=== PATIENT | female | born 1995 | race Caucasian/White ===

== ENCOUNTER 2023-04-04 13:56 | Emergency (ER) | payer OTHER, SELFPAY ==
--- NOTE | ~2023-04-04 | CT_ITS ---
EXAMINATION: CT abdomen pelvis w con DATE: 04/04/2023 18:45 INDICATION: generalized abd tenderness, n/v/d TECHNIQUE: Computed tomography (CT) of the abdomen and pelvis was performed with 100 mL Omnipaque-350 intravenous contrast. Automated exposure control and iterative reconstruction technique were employe d. The dose-length product was 555.63 mGy-cm. COMPARISON: 10/06/2017. FINDINGS: Lower thorax: Unremarkable Liver: Normal. Biliary/Gallbladder: Gallbladder is normal. No bile duct dilation. Pancreas: No mass or duct dilation. Spleen: Normal. Adrenals:No mass. Kidneys: Left subcentimeter renal hypodensities, too small to characterize but most likely represent cysts. No no suspicious mass, stone, or hydronephrosis. GI tract: Mild distal esophageal and gastric wall edema. No small or large bowel dilation. Normal marisol endix. Mesentery/Peritoneum: No ascites, mass, or free air. Retroperitoneum: No mass. Pelvis: Pelvic organs are within normal limits. Small volume free pelvic fluid, within visualized ran ge. Soft Tissues: Soft tissues and body wall unremarkable. Bones: No acute osseous finding. IMPRESSION: Mild esophagitis/gastritis. Otherwise, no acute abdominopelvic process detected. Reviewed, dictated and finalized at location K. IMPRESSION: Mild esophagitis/gastritis. Otherwise, no acute abdominopelvic process detected .
[2023-04-04 14:03] VITALS: BP 128/96; PULSE 94; RESP 18; TEMP 36.3; O2SAT 97
[2023-04-04 16:05] LABS: Hematocrit 48.3 % (37.0-47.0); Hemoglobin 16.6 g/dL (12.0-15.0); Mean Corpuscular HGB Conc 34.4 g/dl (32-36); Mean Corpuscular Hemoglobin 29.1 pg (26-34); Mean Corpuscular Volume 84.7 fl (80-100); Mean Platelet Volume 8.2 fl (7.4-10.4); Platelet Count Result 211 k/mm3 (150-375); Red Cell Distribution Width 11.9 % (11.5-14.5); White Blood Count 15.6 K/mm3 (4.5-10.0)
[2023-04-04 16:16] LABS: Alanine Aminotransferase 37 U/L (6-35); Albumin Level 4.5 g/dL (3.5-5.1); Alkaline Phosphatase 73 U/L (38-126); Anion Gap 6 mmol/L (8-16); Aspartate Amino Transferase 34 U/L (14-36); Bilirubin,Total 0.7 mg/dL (0.2-1.3); Blood Urea Nitrogen 11 mg/dL (7-17); Carbon Dioxide 26 mmol/L (22-30); Chloride 106 mmol/L (98-107); Estimated CRCL calculation 121 ml/min; Estimated Glomerular Filt Rate > 60; Glucose 99 mg/dL (65-110); Lipase 98 U/L (23-300); Potassium 4.5 mmol/L (3.4-5.0); Sodium 138 mmol/L (137-145)
[2023-04-04 16:43] LABS: Band Neutrophils Percent 8 % (0-6); Lymphocytes Absolute Manual 0.31 K/mm3 (1.1-4.5); Monocytes Absolute Manual 0.46 K/mm3 (0.1-0.90); Monocytes Percent Manual 3 % (3-9); Neutrophils Absolute Manual 14.82 K/mm3 (1.7-7.2); Neutrophils Percent Manual 87 % (46-73); Platelet Estimate Adequate (Adequate); Schistocytes None Seen (NORMAL); Total Cells Counted 100
--- NOTE | 2023-04-04 18:01 | ED.NAVMDI ---
HPI - Nausea/Vomiting/Diarrhea General Chief complaint: Nausea/Vomiting/Diarrhea Stated complaint: n/v/d stomach cramps Time Seen by Provider: 04/04/23 17:31 History of Present Illness HPI Narrative: 27-year-old female female reports for evaluation of nausea, vomiting, diarrhea and abdominal cramping x1 day. Patient reports for the past 3 to 4 days, she has had intermittent dysuria. Denies vaginal bleeding, discharge, vaginal lesions or concerns for STDs. She states the dysuria goes away after she drinks a lot of water but then will return. Today woke up with generalized abdominal cramping and associated nausea. She reports 2 episodes of nonbloody emesis and 5 episodes of nonbloody, nonmelanotic soft stools. She denies back pain, chest pain or shortness of breath, fever, body aches or chills. LMP unknown. Related Data Allergies Allergy/AdvReac Type Severity Reaction Status Date / Time Sulfa (Sulfonamide Allergy Severe FACIAL Verified 04/04/23 13:57 Antibiotics) SWELLING, HIVES sulfadiazine Allergy Unknown facial Verified 04/04/23 13:57 swelling Review of Systems Review of Systems: CONSTITUTIONAL: Denies fever, chills EYES: Denies visual changes, redness, or discharge. ENT: Denies rhinorrhea, congestion, sore throat, or otalgia. CARDIOVASCULAR: Denies chest pain, palpitations, or edema. RESPIRATORY: Denies cough or dyspnea. GASTROINTESTINAL: See HPI GENITOURINARY: See HPI SKIN: Denies rash or itching. MUSCULOSKELETAL: Denies back pain, joint pain, or myalgia. NEUROLOGIC: Denies headache, numbness, dizziness, or weakness. PSYCHIATRIC: Denies anxiety or depression. [facility] Past Medical History Medical History Current smoker Fentanyl dependence Heroin abuse IV drug user Social History Social History Smoking packs per day: 1 Smoking cigarettes per day: 20.0 Years smoked: 2 Smoking pack-years: 2.00 Smoking status: Former smoker Tobacco type: cigarettes Second hand tobacco smoke exposure: Yes Smoking end date: 03/16/21 Alcohol intake: current Substance use: current Substance use type: marijuana Exam Narrative: GENERAL: Well-appearing, in no acute distress. HEAD: Normocephalic EYES: PERRLA ENT: Nares clear. Mucous membranes moist. Oropharynx without tonsillar hypertrophy exudate or other lesions. NECK: Supple. CHEST: No respiratory distress. Clear to auscultation, no adventitious breath sounds. HEART: Regular rate and rhythm. No murmur heard. Normal peripheral pulses. ABDOMEN: Normal active bowel sounds. Abdomen soft with generalized abdominal tenderness. No rebound or guarding or rigidity. No CVA tenderness. EXTREMITIES: Normal range of motion. No edema. SKIN: Warm, dry, no rash. NEURO: No focal deficits. Alert and oriented x3. PSYCH: Normal mood and affect. Course Vital Signs Vital signs: Vital Signs Temperature 97.3 F L 04/04/23 14:03 Pulse Rate 94 04/04/23 14:03 Respiratory Rate 18 04/04/23 14:03 Blood Pressure 128/96 H 04/04/23 14:03 Pulse Oximetry 97 04/04/23 14:03 Oxygen Delivery Room Air 04/04/23 14:03 Temperature 97.3 F L 04/04/23 14:03 Pulse Rate 89 04/04/23 18:29 Respiratory Rate 16 04/04/23 18:29 Blood Pressure 127/79 04/04/23 18:29 Pulse Oximetry 98 04/04/23 18:29 Oxygen Delivery Room Air 04/04/23 14:03 MDM - Nausea/Vomiting/Diarrhea MDM Narrative Medical decision making narrative: 27-year-old female female reports for evaluation of nausea, vomiting, diarrhea and abdominal cramping x1 day and intermittent dysuria x3 to 4 days. Vital stable, she is afebrile. Abdomen is soft with generalized abdominal tenderness, no CVA tenderness. CBC significant for leukocytosis of 15.6 with a left shift. Chemistries largely unremarkable. Lipase normal. Urinalysis shows 1+ leuk esterase and 11-20 WBCs. Given patient's symptoms of dysuria, will treat f
[2023-04-04 18:14] LABS: Appearance Urine Clear (Clear); Bacteria Urine None Seen /hpf; Bilirubin Urine Negative (Negative); Blood Urine Negative (Negative); Color Urine Yellow (Yellow); Glucose Urine UA Negative (Negative); Ketones Urine Negative (Negative); Leukocyte Esterase Ur 1+ LEU/UL (Negative); Nitrate Urine Negative (Negative); Non Pathogenic Casts 0-2; Protein Urine Negative (Negative); RBC Urine 0-2 /hpf (0-2); Specific Grav Ur 1.019 (1.001-1.035); Squamous Epithelial Cell Urine Occasional /hpf (Few); Urobilinogen Urine 0.2 mg/dL (<2.0); pH Urine 5.5 (5.0-9.0)
[2023-04-04 18:15] LABS: Add Urine Microscopic? YES
[2023-04-04] MEDS: ONDANSETRON INJ 4 MG/2 ML VIAL IV PUSH (18:26)
[2023-04-04] MEDS: SODIUM CHLORIDE 0.9% IV 1,000 ML 999 ML IV CONT (18:26)
[2023-04-04 18:29] VITALS: BP 127/79; PULSE 89; RESP 16; O2SAT 98
[2023-04-04] MEDS: PANTOPRAZOLE 40 MG TABLET PO (19:10)
[2023-04-04 20:10] VITALS: BP 133/83; PULSE 85; RESP 16; O2SAT 100
== END 2023-04-04 20:12 | disposition home or self-care (01) ==
PROVIDERS: Emergency Medicine; Emergency Provider Physician Assistant; PCP Family Medicine
DX: N30.00 Acute cystitis without hematuria (principal); K29.70 Gastritis, unspecified, without bleeding; Z87.891 Personal history of nicotine dependence
CPT/HCPCS: 36415; 74177; 80053; 81001; 81025; 83690; 85025; 87086; 87088; 96361; 96365; 96375; 99284; A9270; J0696; J2405; J7030; Q9967

== ENCOUNTER 2023-07-11 11:31 | Outpatient (CLI) | payer OTHER, SELFPAY ==
[2023-07-11 18:40] LABS: Alanine Aminotransferase 19 U/L (6-35); Albumin Level 4.5 g/dL (3.5-5.1); Alkaline Phosphatase 64 U/L (38-126); Anion Gap 6 mmol/L (8-16); Aspartate Amino Transferase 24 U/L (14-36); Blood Urea Nitrogen 15 mg/dL (7-17); Calcium 9.3 mg/dL (8.4-10.2); Carbon Dioxide 28 mmol/L (22-30); Chloride 104 mmol/L (98-107); Estimated Glomerular Filt Rate > 60; Glucose 94 mg/dL (65-110); Potassium 4.5 mmol/L (3.4-5.0); Sodium 138 mmol/L (137-145)
== END 2023-07-11 11:32 | disposition home or self-care (01) ==
LOC: ANHGOSHLAB 11:33
PROVIDERS: PCP Family Medicine; Visit Provider Family Medicine
DX: R74.01 Elevation of levels of liver transaminase levels (principal); F19.939 Other psychoactive substance use, unspecified with withdrawal, unspecified
CPT/HCPCS: 36415; 80053; 80307

== ENCOUNTER 2023-11-29 14:50 | Emergency (ER) | payer OTHER, SELFPAY ==
--- NOTE | 2023-11-29 15:10 | ED.URI ---
HPI - URI/Sore Throat General Chief Complaint: Upper Respiratory Infection Stated Complaint: flu like symptoms Time Seen by Provider: 11/29/23 15:00 Source: patient Mode of arrival: ambulatory Limitations: no limitations History of Present Illness HPI Narrative: Patient is a 27-year-old female who presents with 2 days of fever, chills, body aches, sore throat, cough, nausea and vomiting. Has taken Tylenol. States she is unable to keep anything down but does not vomit immediately after eating. Related Data Allergies Allergy/AdvReac Type Severity Reaction Status Date / Time Sulfa (Sulfonamide Allergy Severe FACIAL Verified 11/29/23 15:16 Antibiotics) SWELLING, HIVES sulfadiazine Allergy Severe facial Verified 11/29/23 15:16 swelling Review of Systems Review of Systems: All systems reviewed & are unremarkable except as noted in HPI and below Constitutional: Constitutional: Reports body ache(s), Reports chills, Reports fatigue, Reports fever(s), Denies headache(s), Denies malaise and Denies weakness Eyes: Eyes: Denies blurry vision, Denies itchy eyes and Denies loss of vision ENT: Denies otalgia, Denies headache(s), Reports nasal congestion, Denies sinus pain and Reports sore throat Cardiovascular: Cardiovascular: Denies chest pain, Denies irregular heart rhythm and Denies dyspnea Respiratory: Respiratory: Reports cough and Denies dyspnea Gastrointestinal: Gastrointestinal: Denies abdominal pain, Denies diarrhea, Reports nausea and Reports vomiting Musculoskeletal: Musculoskeletal: Denies back pain, Reports myalgias and Denies arthralgias Integumentary/Breasts: Skin/Breast: Denies pruritus and Denies rash Neurologic: Reports headache(s), Denies loss of vision and Denies weakness Psychiatric: Psychiatric: Reports no additional psychiatric complaints Endocrine: Endocrine: Denies fatigue Allergic/Immunologic: Allergic/Immunologic: Denies itchy eyes PMFSH Past Medical History Medical History Current smoker Fentanyl dependence Heroin abuse IV drug user Social History Social History Smoking packs per day: 0.25 Smoking cigarettes per day: 5.0 Years smoked: 2 Smoking pack-years: 0.50 Smoking status: Current every day smoker Tobacco type: cigarettes Second hand tobacco smoke exposure: Yes Smoking end date: 03/16/21 Alcohol intake: current Substance use: current Substance use type: marijuana Lack of Transportation: No Lack of Food: Never True Current Housing: I Have Housing Concerned About Future Housing: No Difficulty Paying Gas/Electric Bills: No Difficulty Paying for Meds: No Currently Unemployed: No Education: High School Diploma/GED Difficulty w/ Childcare or Family Care: No Comments At time of signature, agree with nursing past medical, surgical, social and family history. There is no relevant family history pertinent to the presenting complaint. Exam Const: General: cooperative, healthy appearing, comfortable, no acute distress and well nourished Nutritional Appearance: well nourished Orientation/consciousness: patient oriented x3 Limitations: no limitations HENMT: Head: normal to inspection, normocephalic and atraumatic Ears: hearing grossly normal bilaterally, external ears normal, TM's normal bilaterally, EAC's normal and no periauricular adenopathy Face/Nose/Sinus: Normal external nose present, Normal nasal mucous membranes and turbinates present, normal facial exam, sinuses nontender and face symmetric Face and sinus: normal facial exam, sinuses nontender and face symmetric Mouth: Yes Normal oral and palatal mucosa present, Yes lip normal, Yes tongue normal, Yes Normal salivary glands and ducts present, Yes oropharynx normal and Yes moist mucous membranes Teeth and gingiva: dentition normal Throat: posterior oropharynx normal, tonsils normal and uvula midline Eyes: General: appearance nor
[2023-11-29 15:18] VITALS: BP 136/86; PULSE 88; RESP 16; TEMP 36.7; O2SAT 100
== END 2023-11-29 15:29 | disposition home or self-care (01) ==
PROVIDERS: Emergency Provider Nurse Practitioner Family; PCP Family Medicine
DX: J11.1 Influenza due to unidentified influenza virus with other respiratory manifestations (principal); Z20.822 Contact with and (suspected) exposure to COVID-19; F17.210 Nicotine dependence, cigarettes, uncomplicated; F11.21 Opioid dependence, in remission
CPT/HCPCS: 87426; 87804; 99213; G0463

== ENCOUNTER 2024-02-14 12:00 | Emergency (ER) | payer OTHER, SELFPAY ==
[2024-02-14 12:17] VITALS: BP 136/84; PULSE 82; RESP 16; TEMP 36.2; O2SAT 100
--- NOTE | 2024-02-14 12:37 | ED.FEMALEGU ---
HPI - Female Genitourinary General Chief complaint: Urogenital-Female Stated complaint: Vaginal Irritaion History of Present Illness HPI Narrative: Pt is a 28 y/o female, presents to with 2 day hx of vaginal discharge, vaginal itching and burning after having intercourse with a new partner 3 days ago while in a hot tub. She denies pelvic pain, flank pain or fevers. She does have a history of Trichomonas that felt similarly. She denies chance of . She has no other complaints. Related Data Allergies Allergy/AdvReac Type Severity Reaction Status Date / Time Sulfa (Sulfonamide Allergy Severe FACIAL Verified 02/14/24 12:34 Antibiotics) SWELLING, HIVES sulfadiazine Allergy Severe facial Verified 02/14/24 12:34 swelling Review of Systems Genitourinary: Comments: refer to [facility] Past Medical History Medical History Current smoker Fentanyl dependence Heroin abuse IV drug user Social History Social History Smoking packs per day: 0.25 Smoking cigarettes per day: 5.0 Years smoked: 2 Smoking pack-years: 0.50 Smoking status: Current every day smoker Tobacco type: cigarettes Second hand tobacco smoke exposure: Yes Smoking end date: 03/16/21 Alcohol intake: current Substance use: current Substance use type: marijuana Lack of Transportation: No Lack of Food: Never True Current Housing: I Have Housing Concerned About Future Housing: No Difficulty Paying Gas/Electric Bills: No Difficulty Paying for Meds: No Currently Unemployed: No Education: High School Diploma/GED Difficulty w/ Childcare or Family Care: No Exam Const: General: healthy appearing Nutritional Appearance: well nourished Orientation/consciousness: patient oriented x3 Limitations: no limitations HENMT: Head: normal to inspection Ears: external ears normal Face/Nose/Sinus: Normal external nose present Face and sinus: normal facial exam Mouth: Yes Normal oral and palatal mucosa present, Yes lip normal and Yes moist mucous membranes Teeth and gingiva: dentition normal Throat: posterior oropharynx normal and uvula midline Eyes: Conjunctivae: conjunctivae normal Pupils: Equal, round and reactive pupils present Neck: Neck: normal visual inspection Chest: Chest palpation & inspection: normal inspection of the chest Resp: Effort & Inspection: normal respiratory effort Auscultation: clear to auscultation bilaterally Cardio: Rate: regular rate Rhythm: regular rhythm : General: Yes bladder normal to palpation Other: no suprapubic TTP, no rebound or guarding, no peritoneal findings Back/Spine/Pelvis: Back: no CVA tenderness Skin: General skin exam: normal color Rashes: no rashes Wounds: no wounds Neuro: General: patient oriented x3, moves all extremities, no meningeal signs, no focal motor deficits and CN's II-XI intact bilaterally Cranial nerves: Yes Nystagmus not present Speech: normal speech Gait exam (Neuro): Normal gait present Extrem: General: normal to inspection, no clubbing, cyanosis or edema and no pedal edema Course Course Emergency Course: plan to send urine for gonorrhea and chlamydia, will treat empirically for both here using Rocephin and Zithromax, will also cover for trich at home with Flagyl, taken with food to limit GI side effects. FU with [employer] stressed. No intercourse until partner is treated and culture results are received. Pt is agreeable with plan. Level of Care: Express Care Visit ([id number]) Vital Signs Vital signs: Vital Signs Temperature 36.2 C L 02/14/24 12:17 Pulse Rate 82 02/14/24 12:17 Respiratory Rate 16 02/14/24 12:17 Blood Pressure 136/84 02/14/24 12:17 Pulse Oximetry 100 02/14/24 12:17 Oxygen Delivery Room Air 02/14/24 12:17 Temperature 36.2 C L 02/14/24 12:17 Pulse Rate 82 02/14/24 12:17 Respiratory Rate 16 02/14/24 12:17 Blood Pressure 1
[2024-02-14] MEDS: cefTRIAXone 1 GM VIAL IM (12:59)
[2024-02-14] MEDS: LIDOCAINE HCL 1% LOCAL INJ 2 ML AMPUL 2.1 ML INFILTRATE (13:00)
[2024-02-14] MEDS: AZITHROMYCIN 250 MG TABLET 1000 MG PO (13:00)
[2024-02-14 21:06] LABS: Chlamydia trachomatis NOT DETECTED (NOT DETECTE); Neisseria gonorrhoeae PCR NOT DETECTED (NOT DETECTE)
== END 2024-02-14 13:49 | disposition home or self-care (01) ==
PROVIDERS: Emergency Provider Nurse Practitioner Family; PCP Family Medicine
DX: N76.0 Acute vaginitis (principal); Z72.51 High risk heterosexual behavior; Z87.891 Personal history of nicotine dependence; F12.90 Cannabis use, unspecified, uncomplicated
CPT/HCPCS: 87491; 87591; 96372; 99214; A9270; G0463; J0696

== ENCOUNTER 2024-11-05 08:01 | Outpatient (CLI) | payer OTHER, SELFPAY ==
--- OUTSIDE RECORDS SUMMARY | 2024-11-08 11:43 | XMS_ITS | Encounter Summary ---
Author Organization [facility] Address [address] [place] [address]. [place], [place] [id number] [place] [id number] Care Team Providers Care Auto Research Engineer Name Role Phone Hiram Pearson MD Primary Care Provider [phone] Encounter Details Date Type Department Care Team (Late st Contact Info) Description 03/09/2020 Hospital Orders Only [facility] Emergency Room [id number] [place] [id number] Emergency, Nurse, RN Social History Tobacco Use Types Packs/Day Years Used Date Smoking Tobacco: Never Assessed Comments Unknown Sex and Gender Information Value Date Recorded Sex Assigned at Not on file Legal Sex Female 7:32 AM CDT Gender Identity Not on file Sexual Orientation Not on file COVID-19 Exposure Response Date Recorded In the last month, have you been in contact with someone who was confirmed or suspected to have Coronavirus / COVID-19? No / Unsure 03/10/2020 1:57 PM CDT documented as of this encounter Plan of Treatment Not on file documented as of this encounter Visit Diagnoses Not on filedocumented in this encounter Additional Health Concerns Infection Onset Date Last Indicated Resolved Time COVID-19 Rule Out 10/13/2024 10/13/2024 10/13/2024 12:31 PM [employer] documented as of this encounter Care Teams Auto Research Engineer Relationship Specialty Start Date End Date Hiram Pearson MD PCP - General FAMILY PRACTICE 06/07/20 documented as of this encounter
--- OUTSIDE RECORDS SUMMARY | 2024-11-08 11:43 | XMS_ITS | Clinical Summary ---
Author Organization [facility] Address [facility] [place] [address] [place] [address] Care Team Providers Care Lead Scientist Name Role Phone Hiram Pearson MD Primary Care Provider [phone]- [phone] Allergies Active Allergy Reactions Criticality Noted Date Comments Sulfa Antibiotics Other (see comment) 8 Medications fluconazole 100 MG tablet 1 tablet today, repeat in 1 week. 2 tablet 06/07/2020 Active albuterol sulfate HFA 108 (90 Base) MCG/ACT inhaler Inhale 2 puffs into the lungs every 6 (six) hours as needed for Wheezing. 6.7 g 10/13/2024 Active loratadine (CLARITIN) 10 MG tablet Take 1 tablet (10 mg total) by mouth daily. 30 tablet 10/13/2024 Active predniSONE 50 MG tablet Take 1 tablet (50 mg total) by mouth daily for 5 days. 5 tablet 10/13/2024 10/18/19 25 benzonatate (TESSALON) 100 MG capsule Take 1 capsule (100 mg total) by mouth 3 (three) times daily as needed for Cough. 20 capsule 10/13/2024 10/20/19 25 Active Problems Problem Noted Date Diagnosed Date Positive blood culture 02/27/2020 Encounters Date Type Department Care Team Description 10/13/2024 11:51 AM [facility] - 10/13/2024 2:11 PM [facility] Emergency [facility] Emergency Room [address] [place] [address] Adam Mendoza MD Shortness Of Breath Discharge Disposition: Home or Self Care (Routine Discharge) 10/13/2024 Travel from Last 3 Months Social History Tobacco Use Types Packs/Day Years Used Date Smoking Tobacco: Every Day Cigarettes Smokeless Tobacco: Never Tobacco Cessation:Ready to Q uit: Not Asked; Counseling Given: Not Answered Alcohol Use Standard Drinks/Week Comments Yes 0 (1 standard drink = 0.6 oz pur e alcohol) 4 days/week Comments No Sex and Gender Information Value Date Recorded Sex Assigned at Not on file Legal Sex Female 7:32 AM CDT Gender Identity Not on file Sexual Orientation Not on file Last Filed Vital Signs Vital Sign Reading Time Taken Comments Blood Pressure 153/97 10/13/2024 11:53 AM [facility] Pulse 86 10/13/2024 12:35 PM [facility] Temperature 36.2 ??C (97.2 ??F) 10/13/2024 11:[address] Respiratory Rate 30 10/13/2024 12:35 PM [facility] Oxygen Saturation 95% 10/13/2024 12:35 PM [facility] Inhaled Oxygen Concentration - - Weight 90.7 kg (200 lb) 10/13/2024 11:53 AM [facility] Height 162.6 cm (5' 4 ) 10/13/2024 11:53 AM [facility] Body Mass Index 34.33 10/13/2024 11:53 AM [facility] Plan of Treatment Health Maintenance Due Date Last Done Comments Cervical Cancer Screening Pa p Smear (Age 30 to 64) Every 3 Years 1993 Annual Physical 1996 Pneumococcal Vaccine: Pediat rics (0 to 5 Years) and At-Risk Patients (6 to 64 Years) (1 of 2 - PCV) 12/16/1999 Hepatitis C 12/16/2011 DTaP, Tdap and Td Vaccines ( 1 - Tdap) 2012 Hepatitis B Vaccines (1 of 3 - 19+ 3-dose series) 2012 Cervical Cancer Screening Pa p with HPV Testing (Age 30 to 64) Every 5 Years 12/16/2023 Cervical Cancer Screening with HPV 12/16/2023 COVID-19 Vaccine ( - 2023-2 5 season) 2024 Influenza Adult (#1) 2024 HPV Vaccines Aged Out No longer eligi ble based on patient's age to complete this topic Meningococcal Vaccine Aged Out No ellen carola eligible based on patient's age to complete this topic RSV Immunizations Under 20 Months Aged Out No longer eligible based on patient's age to complete this topic Procedures Procedure Name Priority Date/Time Associated Diagnosis Comments XR CHEST PORTABLE STAT 10/13/2024 1:2 5 PM [facility] TEST URINE STAT 10/13/2024 1:00 PM [facility] COMPREHENSIVE METABOLIC PANEL STAT 10/13/2024 12:20 PM [facility] CBC W/DIFF AUTOMATED STAT 10/13/2024 12:20 PM [facility] STREP A RAPID STAT 10/13/2024 12:10 PM [facility] RESP SYNCYTIAL VIRUS STAT 10/13/2024 12:10 PM [facility] INFLUENZA A & B STAT 10/13/2024 12:10 PM [facility] CORONAVIRUS (COVID 19) STAT 12:10 PM [facility] from Last 3 Months Results * XR CHEST PORTABLE (10/13/2024 1:25 PM [facility]) Anatomical Region Laterality Modality Chest Radiographic Raisa ging 10/13/2024 1:26 PM [facility] Impressions 10/13/2024 1:26 PM [facility] IMPRESSION: Negative chest Ordered By: ADAM MENDOZA Interpreted By: Gwyn Bradford MD, 10/13/2024 1:26 PM Narrative 10/13/2024 1:26 PM [facility] [address] [facility] [place] [address] SINGLE VIEW OF THE CHEST Clinical history: Cough Comparison: None A single view of the chest demonstrates the cardiac silhouette to be normal in size and appearance. The pulmonary vessels appear normal. The Lungs are clear. No consolidations or effusions are seen. Procedure Note Gwyn Bradford MD - 10/13/2024 [facility] [address] [facility] [place] [address] SINGLE VIEW OF THE CHEST Clinical history: Cough Comparison: None A single view of the chest demonstrates the cardiac silhouette to benormal in size and appearance. The pulmonary vessels appear normal. TheLungs are clear. No consolidations or effusions are seen. IMPRESSION: Negative chest Ordered By: ADAM MENDOZA Interpreted By: Gwyn Bradford MD, 10/13/2024 1:26 PM Adam Mendoza MD GENERAL IMAGING Final Result * TEST URINE (10/13/2024 1:00 PM [facility]) URINE HCG TEST NEGATIVE NEGATIVE 10/13/2024 1:16 PM [facility] Comment: VERY DILUTE URINE SPECIMENS MAY NOT CONTAIN CLINICAL STATISTICAL PROGRAMMER LEVELS OF HCG. IF IS STILL SUSPECTED, A SERUM HCG TEST IS RECOMMENDED. URINE SPECIMEN FROM URETHRA / Unknown 10/13/2024 1:00 PM [facility] us Adam Mendoza MD URINE ORDERABLES Final Result [facility] [address] [place] [address], [place] [phone] * (ABNORMAL) COMPREHENSIVE METABOLIC PANEL (10/13/2024 12:20 PM [facility]) GLUCOSE 99 70 - 99 MG/DL 10/13/2024 12:39 PM [facility] BUN 8 7 - 18 MG/DL 10/13/2024 12:39 PM [facility] CREATININE S/P/B 1.03(H) 0.55 - 1.02 MG/DL 10/13/2024 12:39 PM [facility] SODIUM S/P/B 140 136 - 145 MMOL/L 10/13/2024 12:39 PM [facility] POTASSIUM S/P/B 4.1 3.5 - 5.1 MMOL/L 10/13/2024 12:39 PM [facility] CHLORIDE S/P/B 102 100 - 108 MMOL/L 10/13/2024 12:39 PM [facility] CO2 27.6 21 - 32 MMOL/L 10/13/2024 12:39 PM [facility] CALCIUM S/P/B 9.8 8.5 - 10.1 MG/DL 10/13/2024 12:39 PM [facility] BILIRUBIN TOTAL S/P/B 1.5(H) 0.2 - 1.2 MG/DL 10/13/2024 12:39 PM [facility] TOTAL PROTEIN S/P/B 9.1(H) 6.4 - 8.2 G/DL 10/13/2024 12:39 PM [facility] ALBUMIN S/P/B 4.3 3.4 - 5.0 G/DL 10/13/2024 12:39 PM [facility] AST 14(L) 15 - 37 U/L 10/13/2024 12:39 PM [facility] ALT 24 14 - 55 U/L 10/13/2024 12:39 PM [facility] ALKALINE PHOSPHATASE S/P/B 85 50 - 136 U/L 10/13/2024 12:39 PM [facility] ANION GAP 10.4 5 - 15 MMOL/L 10/13/2024 12:39 PM [facility] BUN CREATININE RATIO 7.8 6 - 26 10/13/2024 12:39 PM [facility] A/G RATIO 0.9(L) 1.0 - 2.0 RATIO 10/13/2024 12:39 PM [facility] GFR ESTIMATE 75(L) >90 ML/MIN/1.7 3 M2 10/13/2024 12:39 PM [facility] Comment: NOTE: eGFR is not calculated for patients <18 years of age. This is an estimated GFR calculation using the new CKD EPI creatinine equation without race and so does not require a correction factor for race. This estimated GFR should not be used for calculating drug doses. 10/13/2024 12:2 0 PM [facility] us Adam Mendoza MD LABORATORY Final Result [facility] [address] [place] [address], [place] [phone] * (ABNORMAL) CBC W/DIFF AUTOMATED (10/13/2024 12:20 PM [facility]) WBC 11.54(H) 4.4 - 11.0 x10'3/uL 10/13/2024 12:24 PM [facility] RBC 5.49(H) 4.50 - 5.10 x10'6/uL 10/13/2024 12:24 PM [facility] HGB 16.9(H) 12.3 - 15.3 G/DL 10/13/2024 12:24 PM [facility] HCT 48.0(H) 35.9 - 44.6 % 10/13/2024 12:24 PM [facility] MCV 87.4 80.0 - 96.0 FL 10/13/2024 12:24 PM [facility] MCH 30.8 25.3 - 30.9 PG 10/13/2024 12:24 PM [facility] MCHC 35.2(H) 31.0 - 34.1 G/DL 10/13/2024 12:24 PM [facility] RDW 11.9(L) 12.4 - 15.1 % 10/13/2024 12:24 PM [facility] PLT 255 151 - 353 x10'3/uL 10/13/2024 12:24 PM [facility] MPV 8.1(L) 9.6 - 12.0 FL 10/13/2024 12:24 PM [facility] RBC MORPHOLOGY NORMAL 10/13/2024 12:24 PM [facility] PLT MORPH. NORMAL 10/13/2024 12:24 PM [facility] WBC MORPHOLOGY NORMAL 10/13/2024 12:24 PM [facility] LYMPHOCYTES % 9.7(L) 15.8 - 45.0 % 10/13/2024 12:24 PM [facility] NEUTROPHILS % 78.8(H) 42.1 - 71.9 % 10/13/2024 12:24 PM [facility] MONOCYTES % 9.0 5.7 - 12.5 % 10/13/2024 12:24 PM [facility] EOSINOPHILS 2.0 0.0 - 5.6 % 10/13/2024 12:24 PM [facility] BASOPHILS 0.2 0.0 - 1.3 % 10/13/2024 12:24 PM [facility] ABS. NEUTROPHILS 9.10(H) 1.40 - 6.00 x10'3/uL 10/13/2024 12:24 PM [facility] IMMATURE GRANS % 0.3 0.0 - 0.5 % 10/13/2024 12:24 PM [facility] ABS. LYMPHOCYTES 1.12 0.80 - 4.70 x10'3/uL 10/13/2024 12:24 PM [facility] 10/13/2024 12:2 0 PM [facility] us Adam Mendoza MD LABORATORY Final Result Performing Organization Address [facility] Co de Phone Number [facility] [address] [place] [address], * CORONAVIRUS (COVID-19) MOLECULAR (10/13/2024 12:10 PM [facility]) CORONAVIRUS SARS COV 2 RNA NEGATIVE NEGATIVE 10/13/2024 12:31 PM [facility] Comment: NEGATIVE RESULTS DO NOT RULE OUT COVID 19 AND SHOULD NOT BE USED THE SOLE BASIS FOR TREATMENT OR PATIENT MANAGEMENT DECISIONS, INCLUDING INFECTION CONTROL DECISIONS. NEGATIVE RESULTS SHOULD BE CONSIDERED IN THE CONTEXT OF A PATIENT'S RECENT EXPOSURES, HISTORY AND THE PRESENCE OF CLINICAL SIGNS AND SYMPTOMS CONSISTENT WITH COVID 19. THE ID NOW COVID-19 2.0 TEST HAS BEEN AUTHORIZED BY THE FDA UNDER EAU FOR USE BY AUTHORIZED LABORATORIES. PERFORMED BY NUCLEIC ACID AMPLIFICATION FOR MOLECULAR QUALITATIVE DETECTION OF SARS-COV-2. SPECIMEN TYPE NASAL 10/13/2024 12:10 PM [facility] NASOPHARYNGEAL SWAB / Unknown 10/13/2024 12:10 PM [facility] us Adam Mendoza MD MICROBIOLOGY - GENERAL ORDERABL ES Final Result Performing Organization Address City/[facility]/ZIP Co de Phone Number [facility] [address] [place] [address], [place] [phone] * INFLUENZA A & B (10/13/2024 12:10 PM [facility]) SPECIMEN TYPE NASOPHARYNX 10/13/2024 12:31 PM [facility] INFLUENZA A NEGATIVE NEGATIVE 10/13/2024 12:31 PM [facility] INFLUENZA B NEGATIVE NEGATIVE 10/13/2024 12:31 PM [facility] NASOPHARYNGEAL SWAB / Unknown 10/13/2024 12:10 PM [facility] us Adam Mendoza MD MICROBIOLOGY - GENERAL ORDERABL ES Final Result Performing Organization Address [facility] Co de Phone Number [facility] [address] [place] [address], [place] [phone] * STREP A RAPID (10/13/2024 12:10 PM [facility]) RAPID STREP TEST NEGATIVE NEGATIVE 10/13/2024 12:31 PM [facility] STRUCTURE OF ANTERIOR PORTION OF NECK / Unknown 10/13/2024 12:10 PM [facility] us Adam Mendoza MD MICROBIOLOGY - GENERAL ORDERABL ES Final Result Performing Organization Address [facility] Co de Phone Number [facility] [address] [place] [address], [place] [phone] * RESP SYNCYTIAL VIRUS (10/13/2024 12:10 PM [facility]) SPECIMEN TYPE NASOPHARYNGEAL SWAB 10/13/2024 12:10 PM [facility] RAPID RSV NEGATIVE NEGATIVE 10/13/2024 12:32 PM [facility] NASOPHARYNGEAL SWAB / Unknown 10/13/2024 12:10 PM [facility] us Adam Mendoza MD MICROBIOLOGY - GENERAL ORDERABL ES Final Result Performing Organization Address [facility] Co de Phone Number [facility] [address] [place] [address], [place] [phone] from Last 3 Months Insurance [employer] Care Teams Lead Scientist Relationship Specialty Start Date End Date Hiram Pearson MD PCP - General FAMILY PRACTICE 06/07/20
--- OUTSIDE RECORDS SUMMARY | 2024-11-08 11:43 | XMS_ITS | Encounter Summary ---
Author Organization [facility] Address [address] [place] [address]. [place], [place] [id number] [place] [address] Care Team Providers Care Director Labor Standards Name Role Phone Hiram Pearson MD Primary Care Provider [phone]- [phone] Encounter Details Date Type Department Care Team (Late st Contact Info) Description 02/27/2020 Therapy Plan [facility] [address] [place], [place] [id number] Trace Louise MD [facility] [address] [address] Social History Tobacco Use Types Packs/Day Years [...] have Coronavirus / COVID-19? 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
== END 2024-11-05 08:02 | disposition home or self-care (01) ==
LOC: ANHAUDIO 08:01
PROVIDERS: PCP Family Medicine
DX: H93.13 Tinnitus, bilateral (principal)
CPT/HCPCS: 92557; 92567